=== PATIENT | male | born 1950 | race American Indian/Alaskan Native ===

== ENCOUNTER 2020-12-31 12:17 | Observation (INO) | payer BC ==
[2021-01-01 11:53] VITALS: BP 126/61
== END 2021-01-01 14:00 | disposition home or self-care (01) ==
LOC: OR 12:17 → 3A 16:01 → 3B-SURG 20:25
PROVIDERS: ADMIT Urology; ATTEND Urology
DX: N40.1 Benign prostatic hyperplasia with lower urinary tract symptoms (principal); N32.0 Bladder-neck obstruction; R33.8 Other retention of urine; R39.198 Other difficulties with micturition
CPT/HCPCS: 36415; 52601; 74430; 80053; 85027; 86850; 86900; 86901; 88305; 96361; 96365; 96366; 96375; A4217; G0378; J0690; J1100; J1170; J1885; J2250; J2370; J2704; J3010; J7120; Q9967; J2405; Q0162